=== PATIENT | male | born 1970 | race Caucasian/White ===

== ENCOUNTER 2018-09-07 10:43 | Emergency (ER) | payer OTHER ==
[~2018-09-07] VITALS: Ht 170.2 cm; Wt 65.0 kg
[2018-09-07 10:43] VITALS: BP 125/80; PULSE 71; RESP 16; Ht 170.2 cm; Wt 65.0 kg
--- NOTE | 2018-09-11 22:22 | ERD ---
ER Documentation Chief Complaint Chief Complaint BIB [employer] FOR MEDICAL CLEARANCE. PT C/O RT EAR PAIN. HPI This is a 48-year-old male that presented to the emergency department brought in by [employer] for medical clearance. The patient was complaining of right ear pain. He had decreased hearing bilaterally. He stated this had been present for several hours. He had no fevers or shaking no chills. He denied a headache. He had no chest pain. No shortness of breath. ROS All systems reviewed and are negative except as per history of present illness. Allergies Allergies: Coded Allergies: No Known Allergy (Unverified , 09/07/18) PMhx/Soc Medical and Surgical Hx: pt denies Medical Hx, pt denies Surgical Hx Hx Alcohol Use: No Hx Substance Use: No Hx Tobacco Use: No Smoking Status: Never smoker Physical Exam Vitals Vital Signs Date Temp Pulse Resp B/P (MAP) Pulse Ox O2 O2 Flow FiO2 Time Delivery Rate 09/07/18 96.3 71 16 125/80 99 10:43 (95) Physical Exam Constitutional:Well-developed. Well-nourished. HEENT:Normocephalic. Atraumatic.Pupils were equal round reactive to light. Moist mucous membranes.No tonsillar exudates. Serum impaction of the right ear Neck: No nuchal rigidity. No lymphadenopathy. No posterior cervical spine tenderness or step-offs. Respiratory: Not using accessory muscles of respiration.Lungs were clear to auscultation bilaterally. No rhonchi. No rales. No wheezing. Cardiovascular: Regular rate regular rhythm.No murmurs. No rubs were appreci ated.S1, S2 normal. Distal pulses are palpable 2+ bilaterally. NEURO: Patient was alert, awake, orientated x3.No facial droop. Gait observed and normal with no ataxia.Speech had regular rate and rhythm. No focal neurological deficits. Procedures/MDM This 48-year-old male that presented to the emergency room with right cerumen impaction. The ear was irrigated in the emergency department. Afterwards I was able to visualize the tympanic membrane and there is no bulging erythema. I did feel that the patient was safe to be medically cleared at this time. He will be discharged with [employer] for [facility]cc clearance. Departure Diagnosis: Primary Impression: Encounter for medical clearance for patient hold Additional Impression: Wax in ear Condition: Fair Patient Instructions: Ear Wax, Treated, Sinusitis, No Abx Additional Instructions: Patient is medically cleared for SHEREE Hernandez MD Sep 11, 2018 22:22
== END 2018-09-07 12:14 ==
LOC: E/R 10:43
DX: H61.21 Impacted cerumen, right ear (principal); Z02.89 Encounter for other administrative examinations